=== PATIENT | female | born 1960 | race Caucasian/White ===

== ENCOUNTER → 2016-07-23 | Outpatient (CLI) | payer BC ==
--- NOTE | 2016-07-23 14:19 | KCIC ---
PROCEDURE MR of the left 5th finger HISTORY Mass at the 5th finger for 6 months. No known injury. TECHNIQUE Surface marker placed at the area of concern. Standard multiplanar sequences are obtained. COMPARISON None FINDINGS There is a soft tissue nodule at the 5th finger corresponding with the area of interest. This is located just lateral to the 5th PIP joint. Measures 10 mm by 9 mm x 5 mm. Consists of mildly hyperintense T1 signal and mildly hyperintense T2 signal. This has a somewhat heterogeneous morphology and does not appear to represent a simple fluid collection or cyst. This is just medial to both the flexor and extensor tendon. This contacts the medial cortex of the 5th PIP joint and proximal aspect of the middle phalanx but no aggressive bone destruction or reactive marrow edema. No bone lesion, bone destruction or acute fracture. There is no evidence of a significant joint effusion. No significant soft tissue edema is identified. The visualized tendons are intact. No significant tendon sheath fluid. IMPRESSION MR does confirm a soft tissue mass located just medial to the 5th PIP joint. The most likely diagnostic considerations would include giant cell tumor of tendon sheath, complex ganglion or fibrous tumor. Benign etiology would be statistically favored over malignant etiology in this location. Electronically signed by: Carlo Farrar MD (Jul 23, 2016 14:17:31)
== END | disposition home or self-care (01) ==
LOC: KCIC MRI 10:44
PROVIDERS: ATTEND Family Medicine
DX: R22.32 Localized swelling, mass and lump, left upper limb (principal); M79.9 Soft tissue disorder, unspecified
CPT/HCPCS: 73218

== ENCOUNTER → 2017-01-28 | Outpatient (CLI) | payer BC ==
--- NOTE | 2017-01-28 12:54 | KCIC ---
MR of the left shoulder Indication: Left shoulder pain for about one month. Pain with certain motions. Technique: Standard multiplanar sequences are obtained. Findings: Acromioclavicular joint: Mild primary osteoarthritis. Rotator cuff: Full-thickness tear of the supraspinatus and infraspinatus tendon. Undersurface retraction measures 3 cm. Mild muscle volume loss due to atrophy. High-grade partial subscapularis tendon tear. Mild fluid in the subdeltoid bursa. Glenohumeral cartilage: No acute defect or advanced DJD. Fluid: Small joint effusion. Labrum: Mild signal within the superior labrum, is partially due to motion artifact but degeneration or tear is suspected. Biceps tendon: Medial subluxation, perched over the lesser tuberosity. Thin and irregular consistent with some partial tearing and tendinosis. Bones: Mild bone marrow heterogeneity, may be due to red marrow reconversion. No aggressive bone destruction or significant marrow pathology. No evidence of acute fracture. Soft tissue: No acute findings. Impression: 1. Large rotator cuff tear. Full-thickness supraspinatus and infraspinatus tendon tear with retraction. High-grade subscapularis tendon tear. 2. Medial subluxation of the biceps tendon with partial tearing. 3. Superior labral degeneration versus tearing. Electronically signed by: Carlo Farrar MD (01/28/2017 12:51 PM) [facility]
== END | disposition home or self-care (01) ==
LOC: KCIC MRI 08:56
PROVIDERS: ATTEND Orthopaedic Surgery
DX: S46.019A Strain of muscle(s) and tendon(s) of the rotator cuff of unspecified shoulder, initial encounter (principal); M19.012 Primary osteoarthritis, left shoulder; X58.XXXA Exposure to other specified factors, initial encounter; Y93.89 Activity, other specified; Y92.89 Other specified places as the place of occurrence of the external cause; Y99.8 Other external cause status
CPT/HCPCS: 73221

== ENCOUNTER → 2018-10-11 | Outpatient (CLI) | payer BC ==
--- NOTE | 2018-10-11 15:44 | KCIC ---
Right axillary ultrasound, 10/11/2018: HISTORY: Axillary lump The patient reports that right axillary lumpiness has been resolving following recent steroid therapy. A targeted ultrasound exam of the right axilla reveals only a tiny 1 x 4 x 5 mm superficial hypoechoic lesion. It is wider than tall. Its margins are smooth. No internal color flow is seen. The features suggest a tiny nonspecific complicated fluid collection. No solid mass or enlarged node is evident. Electronically signed by: Juanpablo Singh MD (10/11/2018 3:41 PM) [facility]
== END | disposition home or self-care (01) ==
LOC: KCIC US 12:22
PROVIDERS: ATTEND Family Medicine
DX: R22.31 Localized swelling, mass and lump, right upper limb (principal)
CPT/HCPCS: 76881

== ENCOUNTER → 2019-03-27 | Outpatient (CLI) | payer BC ==
--- NOTE | 2019-03-27 15:28 | KCIC ---
EXAM: Chest, 2 views. HISTORY: Bronchitis. Cough COMPARISON: None. FINDINGS: 2 views of the chest are obtained. There is no infiltrate, pleural effusion or pneumothorax. The heart is normal in size. IMPRESSION: No acute pulmonary finding. Electronically signed by: Brynn Mcguire MD (03/27/2019 3:25 PM) [place] [id number]
== END | disposition home or self-care (01) ==
LOC: KCIC 13:58
PROVIDERS: ATTEND Family Medicine
DX: J40 Bronchitis, not specified as acute or chronic (principal)
CPT/HCPCS: 71046

== ENCOUNTER → 2019-07-05 | Outpatient (CLI) | payer BC ==
--- NOTE | 2019-07-05 16:37 | KCIC ---
AP and Lateral Views of the Chest 07/05/2019 3:46 PM Indication: Wheezing, postnasal drip Comparison: Chest radiograph March 27, 2019 Findings: There is no focal consolidation or infiltrate identified. The cardiomediastinal silhouette is within normal limits. There is no evidence of pneumothorax or pleural effusion. No acute osseous abnormalities are identified. Impression: No evidence of acute cardiopulmonary process. Electronically signed by: Benjamín Johns MD (07/05/2019 4:34 PM) [id number]
== END | disposition home or self-care (01) ==
LOC: KCIC 15:28
PROVIDERS: ATTEND Family Medicine
DX: R06.2 Wheezing (principal)
CPT/HCPCS: 71046